=== PATIENT | male | born 1950 | race Caucasian/White ===

== ENCOUNTER 2018-07-06 15:05 | Inpatient (IN) | payer MEDICARE ==
[~2018-07-06] VITALS: Ht 167.6 cm; Wt 81.1 kg
--- NOTE | 2018-07-06 15:50 | NUR ---
PT PRESENTS WITH C/O INTEREMITTENT BUT WORSENING SOB OVER LAST FEW MONTHS. PT STATES DX WITH ALS ABOUT A WEEK AGO. PLAN IS TO PLACE PT ON SOMETHING TO HELP WITH BREATHING DUE TO ALS DISEASE PROCESS. PT STATES TYPICALLY SOB HAS BEEN RELATED TO ANXIETY AND TODAY HE APPEARS MODERATELY ANXIOUS. PT STATES NO MATTER THE SYMPTOMS HE BECOMES HYPERVIGILANT AND STRESSES OVER THEM. PT BREATHING SLIGHTLY SHALLOW AND LABORED AND NORMAL RATE. PT SEEN IN PIT. LABS DRAWN. AWAITING FURTHER EVAL AND ORDERS. WILL CONTINUE TO MONITOR.
[2018-07-06 15:57] LABS: ALBUMIN 3.8 g/dL (3.4-5.0); ANION GAP 7 mmol/L (5-15); CALCIUM 9.4 mg/dL (8.5-10.1); CHLORIDE 102 mmol/L (98-107); CREATININE 1.02 mg/dL (0.7-1.3)
[2018-07-06 16:04] LABS: BASOPHILS # (AUTO) 0.05 x10^3/uL (0-0.1); BASOPHILS % (AUTO) 0 % (0-1); EOSINOPHILS # (AUTO) 0.09 x10^3/uL (0-0.4); EOSINOPHILS % (AUTO) 1 % (1-7); LYMPHOCYTES # (AUTO) 1.55 x10^3/uL (1-3.4); LYMPHOCYTES % (AUTO) 12 % (22-44); MD NO; MEAN CORPUSCULAR HEMOGLOBIN 28.5 pg (27.5-34.5); MEAN CORPUSCULAR HGB CONC 31.9 g/dL (33.2-36.2); MEAN CORPUSCULAR VOLUME 89.4 fL (81-97); MEAN PLATELET VOLUME 10.1 fL (7.4-10.4); MONOCYTES # (AUTO) 1.12 x10^3/uL (0.2-0.8); MONOCYTES % (AUTO) 9 % (2-9); NEUTROPHILS # (AUTO) 9.85 x10^3/uL (1.8-6.8); NEUTROPHILS % (AUTO) 78 % (42-75); PLATELET COUNT 304 x10^3/uL (130-400); RED BLOOD COUNT 5.71 x10^6/uL (4.38-5.82); RED CELL DISTRIBUTION WIDTH 17.7 % (9.4-14.8)
[2018-07-06 17:02] LABS: ACETAMINOPHEN < 2 mcg/mL (10-30); SALICYLATE LEVEL < 1.7 mg/dL (2.8-20.0)
--- NOTE | 2018-07-06 17:14 | NUR ---
IV STARTED. HOSPITALIST AT BEDSIDE.
--- NOTE | 2018-07-06 17:27 | NUR ---
REPORT NOT GIVEN. HOSPITALIST WANTS TO SPEAK WITH NEURO AND HAVE RT COMPLETE A PEAK FLOW TO SEE IF LEVEL OF CARE IS CORRECT.
[2018-07-06] MEDS ORDERED: OXYcodone IR 5MG TABLET PO PRN (18:00)
[2018-07-06] MEDS ORDERED: ACETAMINOPHEN 325 MG TABLET PO PRN (18:00)
[2018-07-06] MEDS ORDERED: ONDANSETRON 2MG/ML, 2ML IVPush PRN (18:00)
[2018-07-06] MEDS ORDERED: hydrALAzine 20 MG/ML, 1ML IVPush PRN (18:00)
--- NOTE | 2018-07-06 18:50 | NUR ---
PT UP TO RESTROOM WITH STEADY GAIT. ASSISTED BY
--- NOTE | 2018-07-06 19:06 | NUR ---
PT TO FLOOR. REPORT GIVEN BY CHERYL HOANG.
[2018-07-06 19:33] VITALS: BP 164/97
[2018-07-06] MEDS: morphine SULFATE 10 MG/ML, 1ML IVPush PRN (20:09)
[2018-07-06] MEDS: LORazepam 2 MG/ML, 1ML IVPush PRN (20:11)
[2018-07-07] MEDS: LORazepam 2 MG/ML, 1ML IVPush PRN ×5 (02:22→19:56)
[2018-07-07] MEDS: morphine SULFATE 10 MG/ML, 1ML IVPush PRN ×4 (02:22→19:55)
[2018-07-07] MEDS: SODIUM CHLORIDE 0.9% 1,000 ML IV SCH (12:32)
[2018-07-07 13:44] LABS: BASOPHILS # (AUTO) 0.03 x10^3/uL (0-0.1); BASOPHILS % (AUTO) 0 % (0-1); EOSINOPHILS % (AUTO) 1 % (1-7); LYMPHOCYTES # (AUTO) 1.42 x10^3/uL (1-3.4); LYMPHOCYTES % (AUTO) 10 % (22-44); MD NO; MEAN CORPUSCULAR HGB CONC 31.3 g/dL (33.2-36.2); MEAN CORPUSCULAR VOLUME 89.2 fL (81-97); MEAN PLATELET VOLUME 9.9 fL (7.4-10.4); MONOCYTES # (AUTO) 1.29 x10^3/uL (0.2-0.8); MONOCYTES % (AUTO) 9 % (2-9); NEUTROPHILS # (AUTO) 11.07 x10^3/uL (1.8-6.8); NEUTROPHILS % (AUTO) 80 % (42-75); PLATELET COUNT 290 x10^3/uL (130-400); RED BLOOD COUNT 5.49 x10^6/uL (4.38-5.82); RED CELL DISTRIBUTION WIDTH 17.5 % (9.4-14.8)
[2018-07-07 13:55] VITALS: BP 158/92
[2018-07-07] MEDS ORDERED: CEFTRIAXONE PMX 1GM/50ML 50 ML IV SCH (14:30)
[2018-07-07] MEDS ORDERED: SENNOSIDES 8.6 MG TABLET ONE (18:18)
[2018-07-07] MEDS: SENNOSIDES 8.6 MG TABLET PO SCH (18:20)
[2018-07-08] MEDS: morphine SULFATE 10 MG/ML, 1ML IVPush PRN (01:23)
[2018-07-08] MEDS: LORazepam 2 MG/ML, 1ML IVPush PRN (01:28)
[2018-07-08] MEDS: SODIUM CHLORIDE 0.9% 1,000 ML IV SCH (04:15)
[2018-07-08 04:36] LABS: BASOPHILS # (AUTO) 0.03 x10^3/uL (0-0.1); BASOPHILS % (AUTO) 0 % (0-1); EOSINOPHILS # (AUTO) 0.24 x10^3/uL (0-0.4); EOSINOPHILS % (AUTO) 2 % (1-7); LYMPHOCYTES # (AUTO) 1.77 x10^3/uL (1-3.4); LYMPHOCYTES % (AUTO) 15 % (22-44); MD NO; MEAN CORPUSCULAR HEMOGLOBIN 28.8 pg (27.5-34.5); MEAN CORPUSCULAR HGB CONC 31.7 g/dL (33.2-36.2); MEAN CORPUSCULAR VOLUME 90.7 fL (81-97); MEAN PLATELET VOLUME 10.2 fL (7.4-10.4); MONOCYTES % (AUTO) 10 % (2-9); NEUTROPHILS % (AUTO) 73 % (42-75); PLATELET COUNT 260 x10^3/uL (130-400); RED BLOOD COUNT 5.35 x10^6/uL (4.38-5.82); RED CELL DISTRIBUTION WIDTH 17.5 % (9.4-14.8)
[2018-07-08 04:41] LABS: ANION GAP 3 mmol/L (5-15); CALCIUM 8.8 mg/dL (8.5-10.1); CHLORIDE 103 mmol/L (98-107); CREATININE 0.77 mg/dL (0.7-1.3)
[2018-07-08 08:32] LABS: ALBUMIN 3.3 g/dL (3.4-5.0)
[2018-07-08 08:36] LABS: BILIRUBIN, DIRECT 0.1 mg/dL (0.1-0.2); BILIRUBIN,INDIRECT 0.4 mg/dL (0.0-2.0); BILIRUBIN,TOTAL 0.5 mg/dL (0.2-1.0); TOTAL PROTEIN 7.1 g/dL (6.4-8.2)
[2018-07-08] MEDS ORDERED: morphine SULFATE 10 MG/ML, 1ML IVPush PRN (16:30)
[2018-07-08] MEDS: SENNOSIDES 8.6 MG TABLET PO SCH (20:32)
[2018-07-09] MEDS: LORazepam 2 MG/ML, 1ML IVPush PRN ×2 (00:24→02:22)
[2018-07-09 04:30] LABS: MEAN CORPUSCULAR HEMOGLOBIN 27.9 pg (27.5-34.5); MEAN CORPUSCULAR HGB CONC 31.2 g/dL (33.2-36.2); MEAN CORPUSCULAR VOLUME 89.4 fL (81-97); MEAN PLATELET VOLUME 9.9 fL (7.4-10.4); PLATELET COUNT 270 x10^3/uL (130-400); RED BLOOD COUNT 5.44 x10^6/uL (4.38-5.82)
[2018-07-09 04:40] LABS: ALBUMIN 3.1 g/dL (3.4-5.0); ANION GAP 4 mmol/L (5-15); CALCIUM 8.6 mg/dL (8.5-10.1); CHLORIDE 102 mmol/L (98-107)
[2018-07-09 04:43] LABS: ALANINE AMINOTRANSFERASE 36 U/L (12-78); ALKALINE PHOSPHATASE 54 U/L (45-117); BILIRUBIN,TOTAL 0.4 mg/dL (0.2-1.0); CREATININE 0.96 mg/dL (0.7-1.3); TOTAL PROTEIN 6.8 g/dL (6.4-8.2)
[2018-07-09 05:10] LABS: BASOPHILS # (AUTO) 0.03 x10^3/uL (0-0.1); BASOPHILS % (AUTO) 0 % (0-1); EOSINOPHILS # (AUTO) 0.13 x10^3/uL (0-0.4); EOSINOPHILS % (AUTO) 1 % (1-7); LYMPHOCYTES # (AUTO) 1.66 x10^3/uL (1-3.4); LYMPHOCYTES % (AUTO) 13 % (22-44); MD NO; MONOCYTES # (AUTO) 1.29 x10^3/uL (0.2-0.8); MONOCYTES % (AUTO) 10 % (2-9); NEUTROPHILS # (AUTO) 10.06 x10^3/uL (1.8-6.8); NEUTROPHILS % (AUTO) 76 % (42-75)
[2018-07-09 11:44] VITALS: BP 116/79
[2018-07-09] MEDS: OXYcodone IR 5MG TABLET PO PRN ×2 (18:21→21:28)
[2018-07-09] MEDS: DIPHENHYDRAMINE/ZINC CRM 2%, 30GM TP PRN ×2 (18:43→21:28)
[2018-07-09 19:36] VITALS: BP 126/84
[2018-07-09] MEDS: SENNOSIDES 8.6 MG TABLET PO SCH (21:00)
[2018-07-09] MEDS: ZOLPIDEM 5MG TABLET PO PRN (21:28)
[2018-07-10 02:23] VITALS: BP 129/84
[2018-07-10] MEDS: OXYcodone IR 5MG TABLET PO PRN ×4 (03:28→22:59)
[2018-07-10 03:32] VITALS: BP 135/80
[2018-07-10 04:22] LABS: MICROSCOPIC NOT IND
[2018-07-10 04:25] LABS: CULTURE INDICATED? NO
[2018-07-10] MEDS: LORazepam 2 MG/ML, 1ML IVPush PRN (04:57)
[2018-07-10 05:55] LABS: BASOPHILS # (AUTO) 0.03 x10^3/uL (0-0.1); BASOPHILS % (AUTO) 0 % (0-1); EOSINOPHILS # (AUTO) 0.21 x10^3/uL (0-0.4); EOSINOPHILS % (AUTO) 2 % (1-7); LYMPHOCYTES # (AUTO) 1.92 x10^3/uL (1-3.4); LYMPHOCYTES % (AUTO) 19 % (22-44); MD NO; MEAN CORPUSCULAR HEMOGLOBIN 28.8 pg (27.5-34.5); MEAN CORPUSCULAR HGB CONC 32.1 g/dL (33.2-36.2); MEAN CORPUSCULAR VOLUME 89.8 fL (81-97); MEAN PLATELET VOLUME 10.3 fL (7.4-10.4); MONOCYTES # (AUTO) 1.28 x10^3/uL (0.2-0.8); MONOCYTES % (AUTO) 13 % (2-9); NEUTROPHILS # (AUTO) 6.69 x10^3/uL (1.8-6.8); NEUTROPHILS % (AUTO) 66 % (42-75); PLATELET COUNT 272 x10^3/uL (130-400); RED BLOOD COUNT 5.23 x10^6/uL (4.38-5.82); RED CELL DISTRIBUTION WIDTH 17.4 % (9.4-14.8)
[2018-07-10 06:12] LABS: ANION GAP 4 mmol/L (5-15); CHLORIDE 101 mmol/L (98-107)
[2018-07-10 06:14] LABS: CREATININE 0.84 mg/dL (0.7-1.3)
[2018-07-10] MEDS: SERTRALINE 50MG TABLET PO SCH (10:12)
[2018-07-10] MEDS: DIPHENHYDRAMINE/ZINC CRM 2%, 30GM TP PRN (10:23)
[2018-07-10 15:22] VITALS: BP 131/72
[2018-07-10] MEDS ORDERED: LORazepam 0.5MG TABLET PO PRN (15:30)
[2018-07-10] MEDS: LORazepam 1MG TABLET PO PRN (16:00)
[2018-07-10 18:15] VITALS: BP 129/78
[2018-07-10] MEDS: SENNOSIDES 8.6 MG TABLET PO SCH (21:29)
[2018-07-11 00:02] VITALS: BP 133/74
[2018-07-11] MEDS: ZOLPIDEM 5MG TABLET PO PRN (00:24)
[2018-07-11] MEDS: OXYcodone IR 5MG TABLET PO PRN ×3 (04:45→20:01)
[2018-07-11] MEDS: LORazepam 1MG TABLET PO PRN (05:42)
[2018-07-11 06:14] LABS: MEAN CORPUSCULAR HEMOGLOBIN 27.8 pg (27.5-34.5); MEAN CORPUSCULAR HGB CONC 30.8 g/dL (33.2-36.2); MEAN CORPUSCULAR VOLUME 90.2 fL (81-97); MEAN PLATELET VOLUME 10.1 fL (7.4-10.4); PLATELET COUNT 265 x10^3/uL (130-400); RED BLOOD COUNT 5.62 x10^6/uL (4.38-5.82); RED CELL DISTRIBUTION WIDTH 17.4 % (9.4-14.8)
[2018-07-11 06:21] LABS: CHLORIDE 101 mmol/L (98-107)
[2018-07-11 06:27] LABS: ANION GAP 4 mmol/L (5-15); CALCIUM 8.9 mg/dL (8.5-10.1); CREATININE 0.87 mg/dL (0.7-1.3)
[2018-07-11 06:31] LABS: BASOPHILS # (AUTO) 0.03 x10^3/uL (0-0.1); BASOPHILS % (AUTO) 0 % (0-1); EOSINOPHILS # (AUTO) 0.16 x10^3/uL (0-0.4); EOSINOPHILS % (AUTO) 2 % (1-7); LYMPHOCYTES # (AUTO) 2.03 x10^3/uL (1-3.4); LYMPHOCYTES % (AUTO) 22 % (22-44); MD SCAN; MONOCYTES # (AUTO) 0.99 x10^3/uL (0.2-0.8); MONOCYTES % (AUTO) 11 % (2-9); NEUTROPHILS % (AUTO) 66 % (42-75)
[2018-07-11 08:00] VITALS: BP 125/76
[2018-07-11] MEDS: SERTRALINE 50MG TABLET PO SCH (10:30)
[2018-07-11] MEDS: DIPHENHYDRAMINE/ZINC CRM 2%, 30GM TP PRN (13:07)
[2018-07-11 19:18] VITALS: BP 129/74
[2018-07-11] MEDS: SENNOSIDES 8.6 MG TABLET PO SCH (20:09)
[2018-07-12 00:02] VITALS: BP 137/79
[2018-07-12] MEDS: OXYcodone IR 5MG TABLET PO PRN ×4 (00:03→21:16)
[2018-07-12] MEDS: LORazepam 1MG TABLET PO PRN ×2 (01:13→23:08)
[2018-07-12] MEDS: SERTRALINE 50MG TABLET PO SCH (07:20)
[2018-07-12 08:00] VITALS: BP 160/88
[2018-07-12 14:00] VITALS: BP 137/86
[2018-07-12 19:56] VITALS: BP 150/81
[2018-07-12] MEDS: SENNOSIDES 8.6 MG TABLET PO SCH (21:16)
[2018-07-12] MEDS: DIPHENHYDRAMINE/ZINC CRM 2%, 30GM TP PRN ×2 (22:22→23:09)
[2018-07-13 01:04] VITALS: BP 109/71
[2018-07-13] MEDS: ZOLPIDEM 5MG TABLET PO PRN (03:35)
[2018-07-13 07:27] VITALS: BP 141/88
[2018-07-13] MEDS: SERTRALINE 50MG TABLET PO SCH (10:48)
[2018-07-13] MEDS: OXYcodone IR 5MG TABLET PO PRN ×3 (10:48→23:31)
[2018-07-13] MEDS: LORazepam 1MG TABLET PO PRN ×2 (12:32→21:31)
[2018-07-13 13:32] VITALS: BP 117/77
[2018-07-13] MEDS: ENOXAPARIN 40 MG/0.4 ML SQ SCH (17:43)
[2018-07-13 18:54] VITALS: BP 136/76
[2018-07-13] MEDS: SENNOSIDES 8.6 MG TABLET PO SCH (21:31)
[2018-07-13] MEDS: DIPHENHYDRAMINE/ZINC CRM 2%, 30GM TP PRN (23:31)
[2018-07-14 03:20] VITALS: BP 150/86
[2018-07-14 07:30] VITALS: BP 141/82
[2018-07-14] MEDS: LORazepam 1MG TABLET PO PRN ×2 (08:36→19:43)
[2018-07-14] MEDS: OXYcodone IR 5MG TABLET PO PRN ×2 (08:36→19:44)
[2018-07-14] MEDS: SERTRALINE 50MG TABLET PO SCH (08:36)
[2018-07-14 14:05] VITALS: BP 143/85
[2018-07-14] MEDS: ENOXAPARIN 40 MG/0.4 ML SQ SCH (18:19)
[2018-07-14] MEDS: SENNOSIDES 8.6 MG TABLET PO SCH (19:44)
[2018-07-14 20:08] VITALS: BP 156/84
[2018-07-15] MEDS: OXYcodone IR 5MG TABLET PO PRN ×3 (00:31→12:10)
[2018-07-15] MEDS: LORazepam 1MG TABLET PO PRN (00:31)
[2018-07-15] MEDS: ZOLPIDEM 5MG TABLET PO PRN (01:01)
[2018-07-15 01:25] VITALS: BP 150/96
[2018-07-15 06:20] VITALS: BP 139/83
[2018-07-15] MEDS: SERTRALINE 50MG TABLET PO SCH (08:05)
[2018-07-15 14:04] VITALS: BP 147/82
[2018-07-15] MEDS ORDERED: TRIAMTERENE-HCTZ PO (19:16)
[2018-07-15] MEDS ORDERED: ENAL5TAB PO (19:16)
[2018-07-16] MEDS ORDERED: SERT50TA28 PO ×2 (15:47→16:17)
== END 2018-07-15 16:21 | disposition left against medical advice (07) | DRG 56 ==
LOC: ED 16:57 → 3NE 17:12 → 3NW 20:28 → CCU 07-07 17:55 → 3NE 07-09 10:33
PROVIDERS: ADMIT Internal Medicine; ATTEND Internal Medicine
PROC: 5A09357 Assistance with Respiratory Ventilation, Less than 24 Consecutive Hours, Continuous Positive Airway Pressure (ICD-10-PCS; principal; 2018-07-10)
PROC: 5A09357 Assistance with Respiratory Ventilation, Less than 24 Consecutive Hours, Continuous Positive Airway Pressure (ICD-10-PCS; 2018-07-13)
DX: G12.21 Amyotrophic lateral sclerosis (principal); J96.01 Acute respiratory failure with hypoxia; J96.02 Acute respiratory failure with hypercapnia; J98.11 Atelectasis; K56.7 Ileus, unspecified; R45.851 Suicidal ideations; D72.829 Elevated white blood cell count, unspecified; F12.90 Cannabis use, unspecified, uncomplicated; F32.9 Major depressive disorder, single episode, unspecified; F41.9 Anxiety disorder, unspecified; F41.0 Panic disorder [episodic paroxysmal anxiety]; G47.33 Obstructive sleep apnea (adult) (pediatric); I11.9 Hypertensive heart disease without heart failure; K21.9 Gastro-esophageal reflux disease without esophagitis; Z51.5 Encounter for palliative care; Z53.20 Procedure and treatment not carried out because of patient's decision for unspecified reasons; Z96.611 Presence of right artificial shoulder joint; Z66 Do not resuscitate; Z53.21 Procedure and treatment not carried out due to patient leaving prior to being seen by health care provider; Z91.19 Patient's noncompliance with other medical treatment and regimen; Z91.81 History of falling
CPT/HCPCS: 36415; 36600; 71045; 71046; 80048; 80053; 80076; 80307; 81003; 82040; 82803; 82962; 83880; 84145; 85025; 87040; 87081; 93005; 93306; 94660; 99285; G0378; J0696; J1650; J2060; J2270; J7030

== ENCOUNTER 2018-07-15 16:44 | Inpatient (IN) | payer MEDICARE ==
[~2018-07-15] VITALS: Ht 167.6 cm; Wt 80.1 kg
--- NOTE | 2018-07-15 17:42 | NUR ---
PT PRESENTS TO ED C/O SOB. WAS ADMITTED FOR ALS AND LEFT AMA TODAY APPROX 1 [employer]. PT RESTING ON GURNEY. CP MONITORS IN PLACE. AWAITING ORDERS.
--- NOTE | 2018-07-15 18:32 | NUR ---
PT RESTING ON MANNY. [place]. RESP EVEN AND UNLABORED. ALL CONCERNS ADRESSED.
--- NOTE | 2018-07-15 19:10 | NUR ---
SBAR REPORT TO CHERYL CABRAL.
[2018-07-15] MEDS ORDERED: TRIAMTERENE-HCTZ PO (19:16)
[2018-07-15] MEDS ORDERED: ENAL5TAB PO (19:16)
--- NOTE | 2018-07-15 19:27 | NUR ---
REPORT TO VIKTOR LUNA
[2018-07-15] MEDS ORDERED: POLYETHYLENE GLYCOL 17 GM PACKET PO PRN (19:30)
[2018-07-15] MEDS ORDERED: ACETAMINOPHEN 325 MG TABLET PO PRN (19:30)
[2018-07-15] MEDS ORDERED: BISACODYL 10 MG SUPP PR PRN (19:30)
[2018-07-15] MEDS ORDERED: ONDANSETRON 2MG/ML, 2ML IVPush PRN (19:30)
[2018-07-15] MEDS ORDERED: ENALAPRILAT 1.25 MG/ML, 2ML IVPush PRN (19:30)
[2018-07-15] MEDS ORDERED: SODIUM CHLORIDE FLUSH 10ML SYR IVF PRN (19:30)
[2018-07-15] MEDS ORDERED: ENOXAPARIN 40 MG/0.4 ML SQ SCH (20:00)
[2018-07-15] MEDS: OXYcodone/APAP 5/325MG TABLET PO PRN (20:16)
[2018-07-15 20:43] VITALS: BP 160/93
[2018-07-15] MEDS ORDERED: ZOLPIDEM 5MG TABLET PO PRN (22:30)
[2018-07-15] MEDS: LORazepam 1MG TABLET PO PRN (22:40)
[2018-07-16 01:35] VITALS: BP 158/85
[2018-07-16] MEDS: OXYcodone/APAP 5/325MG TABLET PO PRN ×2 (05:42→14:36)
[2018-07-16 08:29] VITALS: BP 161/85
[2018-07-16] MEDS: LORazepam 1MG TABLET PO PRN (08:39)
[2018-07-16] MEDS ORDERED: SENNA/DOCUSATE TABLET PO SCH (09:00)
[2018-07-16] MEDS ORDERED: ENALAPRIL 5MG TABLET PO SCH (09:00)
[2018-07-16 14:42] VITALS: BP 128/77
[2018-07-16] MEDS ORDERED: SERT50TA28 PO ×2 (15:47→16:17)
[2018-07-16 16:41] VITALS: BP 128/77
[2018-07-17] MEDS ORDERED: SERTRALINE 50MG TABLET PO SCH (18:00)
== END 2018-07-16 17:20 | disposition home or self-care (01) | DRG 56 ==
LOC: ED 18:17 → EDIP 19:15 → 3NE 19:37
PROVIDERS: ADMIT Family Medicine; ATTEND Family Medicine
DX: G12.21 Amyotrophic lateral sclerosis (principal); J96.01 Acute respiratory failure with hypoxia; J96.02 Acute respiratory failure with hypercapnia; F33.9 Major depressive disorder, recurrent, unspecified; F12.90 Cannabis use, unspecified, uncomplicated; G47.33 Obstructive sleep apnea (adult) (pediatric); I10 Essential (primary) hypertension; K21.9 Gastro-esophageal reflux disease without esophagitis; M54.13 Radiculopathy, cervicothoracic region; Z66 Do not resuscitate; Z96.611 Presence of right artificial shoulder joint; Z88.8 Allergy status to other drugs, medicaments and biological substances
CPT/HCPCS: 36600; 82803; 93005; 94010; 94660; 94726; 99285; G0378